=== PATIENT | male | born 1980 | race Two or more races ===

== ENCOUNTER 2019-09-26 16:51 | Emergency (ER) | payer OTHER ==
[2019-09-26 17:05] VITALS: BP 137/94
--- NOTE | 2019-09-26 17:08 | UC ---
Lower Extremity/Ankle HPI - HPI Summary HPI Summary: 38-year-old male presents with complaints of right ankle pain. States last night at approximately 3 AM he stepped off a curb causing an inversion injury to the right ankle. Complains of pain along the lateral aspect of the right ankle. States he has been able to walk and bear weight since the injury however with discomfort. Denies any numbness or tingling. - History of Current Complaint Chief Complaint: UCLowerExtremity Stated Complaint: ANKLE INJURY Time Seen by Provider: 09/26/19 16:56 Hx Obtained From: Patient Pain Intensity: 2 - Allergies/Home Medications Allergies/Adverse Reactions: Allergies Allergy/AdvReac Type Severity Reaction Status Date / Time No Known Allergies Allergy Verified 09/26/19 16:59 Home Medications: Home Medications NK [No Home Medications Reported] 09/26/19 [History Confirmed 09/26/19] PMH/Surg Hx/FS Hx/Imm Hx Previously Healthy: Yes - denies significant PMH - Surgical History Surgical History: None - Family History Family History: Denies significant FMH - Social History Occupation: Employed Full-time Lives: With Family Alcohol Use: None Substance Use Type: None Smoking Status (MU): Never Smoked Tobacco Review of Systems All Other Systems Reviewed And Are Negative: Yes Constitutional: Positive: Negative Skin: Negative: Bruising Respiratory: Positive: Negative Cardiovascular: Positive: Negative Gastrointestinal: Positive: Negative Genitourinary: Positive: Negative Motor: Negative: Weakness Neurovascular: Negative: Decreased Sensation Musculoskeletal: Positive: Arthralgia - See HPI Neurological/Mental Status: Positive: Negative Is Patient Immunocompromised?: No Physical Exam - Summary Physical Exam Summary: GENERAL APPEARANCE: Well developed, well nourished, alert and cooperative, and appears to be in no acute distress. CARDIAC: Normal S1 and S2. No S3, S4 or murmurs. Rhythm is regular. There is no peripheral edema, cyanosis or pallor. Extremities are warm and well perfused. Capillary refill is less than 2 seconds. Peripheral pulses intact. LUNGS: Clear to auscultation without rales, rhonchi, wheezing or diminished breath sounds. ABDOMEN: Positive bowel sounds. Soft, nondistended, nontender. No guarding or rebound. No masses or hepatosplenomegally. MUSKULOSKELETAL: Normal muscular development. Normal gait. EXTREMITIES: Tenderness over the lateral joint line of the right ankle with minimal edema. No ecchymosis. Full ROM. Circulation and sensation intact. SKIN: Skin normal color, texture and turgor with no lesions or eruptions. Triage Information Reviewed: Yes Vital Signs Reviewed: Yes Diagnostics - Radiology No standard instances Radiology Interpretation Completed By: Radiologist Summary of Radiographic Findings: Order Information: ANKLE RIGHT 3+VWS. Indication: Lateral ankle pain. 3 views of the right ankle demonstrates no fracture. No other bone or joint abnormality is identified. IMPRESSION: No fracture of the right ankle is noted. Lower Extremity Course/Dx - Course Course Of Treatment: 38-year-old male presents with complaints of right ankle pain. States last night at approximately 3 AM he stepped off a curb causing an inversion injury to the right ankle. Complains of pain along the lateral aspect of the right ankle. States he has been able to walk and bear weight since the injury however with discomfort. Denies any numbness or tingling. Afebrile. Vital signs stable. Patient had tenderness over the lateral joint line of the right ankle with minimal edema, no ecchymosis, full ROM with circulation and sensation intact. Remainder of exam was unremarkable. X-ray showed no acute osseous injury. Reviewed results with the patient and I'm recommending conservative treatment for a mild right ankle sprain including [id number] analgesics and RICE. He was placed in an Tristen wrap and stirrup splint by the RN. Patient declined crutches at this time. He is to follow-up with orthopedic surgery in 7 days if symptoms are not improving. Anticipatory guidance and warning symptoms are reviewed with the patient. Verbalizes understanding and agrees with plan of care. - Differential Dx/Diagnosis Differential Diagnosis/HQI/PQRI: Contusion, Dislocation, Fracture (Closed), Sprain Provider Diagnosis: Right ankle sprain Discharge ED - Sign-Out/Discharge Documenting (check all that apply): Patient Departure All imaging exams completed and their final reports reviewed: Yes - Discharge Plan Condition: Stable Disposition: HOME Patient Education Materials: Ankle Sprain (ED) Forms: *Work Release Referrals: No Primary Care Phys,NOPCP [Primary Care Provider] - Sandhya Sánchez MD [Medical Doctor] - Additional Instructions: The x-ray performed in the clinic today showed no evidence of a fracture. Rest the ankle as much as possible. Use the stirrup splint applied in the clinic until you are pain-free. Apply ice to the affected area for 15-20 minutes at least 4 times a day to help with the pain and swelling. Elevate the leg to help reduce swelling. Take acetaminophen (Tylenol) or ibuprofen (Advil, Motrin) according to directions as needed for pain. Follow up with orthopedic surgery in 7 days if symptoms do not improve. Seek immediate medical attention if you have severe pain not managed with pain medication, you are unable to walk or bear any weight, develop numbness or tingling in the foot or toes, or have any worsening of symptoms. - Billing Disposition and Condition Condition: STABLE Disposition: Home
== END 2019-09-26 17:55 | disposition home or self-care (01) ==
LOC: UCEAST 16:51
DX: S93.401A Sprain of unspecified ligament of right ankle, initial encounter (principal); X50.1XXA Overexertion from prolonged static or awkward postures, initial encounter; Y93.89 Activity, other specified; Y92.480 Sidewalk as the place of occurrence of the external cause
CPT/HCPCS: 99213; G0463